=== PATIENT | male | born 1950 | race Caucasian/White ===

== ENCOUNTER → 2024-05-21 07:17 | Outpatient (REF) | payer MEDICARE, SELFPAY | LOC: HWRCS 07:17 | PROVIDERS: ATTENDING PHYSICIAN Internal Medicine Cardiovascular Disease; FAMILY PHYSICIAN Family Medicine | DX: I48.19 Other persistent atrial fibrillation (principal); I10 Essential (primary) hypertension | CPT/HCPCS: 93306 ==

== ENCOUNTER 2024-05-30 08:24 | Day surgery (SDC) | payer MEDICARE, SELFPAY ==
[2024-05-23 10:05] VITALS: BMI 26.4
[2024-05-23 11:05] LABS: % Basophils 0.6 % (0-2); % Immature Granulocytes 0.2 % (0-0.5); % Lymphocytes 23.5 % (20.5-51.1); % Monocytes 15.3 % (1.7-9.3); % Neutrophils 56.4 % (42.2-75.2); Absolute Eosinophils 0.2 10^3/uL (0-0.7); Absolute Lymphocytes 1.1 10^3/uL (1.2-3.4); Absolute Monocytes 0.7 10^3/uL (0.1-0.6); Absolute Neutrophils 2.7 10^3/uL (1.4-6.5); Hematocrit 52.3 % (39.0-52.0); Hemoglobin 18.1 g/dL (13.0-18.0); Mean Corp Hgb Conc. 34.6 g/dL (33.0-37.0); Mean Corpuscular Hgb 30.8 pg (27.0-31.0); Mean Corpuscular Volume 88.9 fL (80.0-94.0); Mean Platelet Volume 10.7 fL (7.4-10.4); Nucleated Red Blood Cells % 0 % (-); Platelet Count 165 10^3/uL (130-400); Red Blood Cell Count 5.88 10^6/uL (4.70-6.10); Red Cell Dist. Width 13.2 % (11.5-14.5); White Blood Cell Count 4.8 10^3/uL (4.8-10.8)
[2024-05-23 11:17] LABS: INR 1.41; PT 17.3 Sec (11.4-14.6)
[2024-05-23 11:35] LABS: ALT (SGPT) 37 U/L (0-50); AST (SGOT) 36 U/L (17-59); Albumin 4.3 g/dl (3.5-5.0); Alkaline Phosphatase 42 U/L (38-126); Blood Urea Nitrogen 18 mg/dl (9-20); Calcium 9.9 mg/dl (8.4-10.2); Carbon Dioxide 34 mmol/L (22-30); Chloride 97 mmol/L (98-107); Estimated Creatinine Clearance 68 ml/min; Glucose 67 mg/dl (70-99); Potassium 3.6 mmol/L (3.5-5.1); Sodium 142 mmol/L (135-145); Total Bilirubin 2.8 mg/dl (0.2-1.3); Total Protein 6.9 g/dl (6.3-8.2); eGFR > 60.00
[2024-05-30] VITALS (7 sets, daily range): BP systolic 129–172; BP diastolic 76–121; BMI 25.7
[2024-05-30 11:33] LABS: ACT-LR - POC 342 Seconds (116-155)
[2024-05-30 11:52] LABS: ACT-LR - POC 329 Seconds (116-155)
[2024-05-30 12:11] LABS: ACT-LR - POC 358 Seconds (116-155)
--- NOTE | 2024-05-30 13:52 | ITS.CL.ABL ---
[facility] Department Supervisor - Ablation
Ablation
Procedure Report:
ELECTROPHYSIOLOGIC STUDY AND POSSIBLE ABLATION
DATE: 05/30/24
Primary Care Provider: Dr Roman Her
Primary Social Director: Dr Lavelle Camarena
INDICATION:
Symptomatic Atrial Fibrillation.
Persistent
HISTORY: See H and P.
Symptomatic AF, poorly controlled with attempted medical therapy
HAS-BLED: 2
Age
CHADSVASc: 3
HTN
Age
PRESENTING RHYTHM: AF
HISTORY: See H and P.
Symptomatic AF, poorly controlled with attempted medical therapy.
ANTICOAGULATION: Rivaroxaban
'TIME-OUT': called and confirmed.
SEDATION/ANESTHESIA: provided via the anesthesia department using general anesthesia.
PROCEDURE:
Ultrasound Guidance performed by sc was utilized for femoral venous Vascular Access b/l.
A decapolar CS catheter was placed within the CS for mapping and pacing.
The intracardiac ultrasound catheter was positioned in the RA for continuous intracardiac ultrasound imaging.
Heparin bolus and infusion to target ACT at 300 -350 seconds was administered. Transseptal puncture was performed. This entailed advancing a sheath with dilator into the superior vena cava and withdrawing both (monitoring intracardiac ultrasound,
fluoroscopy and tip pressure) with the tip oriented toward the atrial septum. The fossa ovalis was engaged (indicated by sudden displacement of the sheath tip as well as tenting of the fossa seen on intracardiac ultrasound).
The FarapDomee transseptal system was used. Left atrial catheter position was confirmed by echocardiographic imaging and fluoroscopy followed by RF delivery using the Hitpost system resulting in successful LA access with pressure monitoring
demonstrating LA pressure waveforms (LA mean pressure 14 mm Hg). The sheath was advanced over the dilator and positioned in the left atrium.
The [employer] multipolar mapping catheter was initially positioned through the transseptal sheath for high density mapping.
Geometry and voltage mapping was performed using the Hannah multipolar grid catheter. Navex was utilized for three-dimensional electroanatomical mapping.
A 3-D map was created using Navex. A 3-D reconstructed CT image was compared to the 3-D Navex map to assist in anatomic evaluation, mapping and ablation.
The [employer] catheter and system was used for cardiac ablation. Catheter positioning was guided and confirmed using both I.C.E. and fluoroscopy.
PV isolation approach was used to electrically isolate each PV ostia (LSPV, LIPV, RSPV, RIPV).
Additional energy applications/additional ablation set was required to accomplish wide area circumferential ablation around each of the pulmonary vein sets and additionally ablation to accomplish LA posterior wall ablation.
Remapping with the [employer] multipolar grid catheter found that all PVPs were eliminated at each vein demonstrating entrance block. Also pacing from the multipolar mapping catheter around the the circumference of the ostia was performed at 10 ma and
2.0 msec output to assess for exit block. This demonstrated electrical isolation at each of the pulmonary vein ostia (LSPV, LIPV, RSPV, RIPV). There is also entrance and exit block at the LA posterior wall.
Programmed electrostimulation failed to induce any sustained arrhythmias.
I.C.E. :
Pre-Ablation Post-Ablation
LVEF: 55 % 55 %
WMA: none none
Pericardial effusion: none none
COMPLICATIONS:
SUMMARY:
- Mapping and ablation to isolate the PVs
- Additional AF ablation set after PVI.
- 3-D Electroanatomical Mapping
- Intracardiac Ultrasound
Post ablation, I discussed today's findings and results with the patient's , Gianna.
RECOMMENDATIONS:
- Observe in monitored bed.
- Maintain oral anticoagulation.
- Office visit with Fabrice in 3 months.
Copy to:
Dr Roman Her
Dr Lavelle Camarena
[2024-05-30] MEDS: TENORMIN 25 MG PO (14:04)
[2024-05-30] MEDS: ORETIC 12.5 MG PO (14:07)
--- NOTE | 2024-05-30 14:20 | W.PN.UPDATE ---
Update Note
Progress Note Update
Pt seen post PFA. Right groin site without ht/bleeding, non tender. Urinating without difficulty. Post EKG NSR w/1st deg AVB, no acute changes. Pt takes Xarelto in the morning and does not want to change to evening dosing. He will take one dose
tonight at 6pm, 04/30 at noon, 05/01 at 10AM, and Saturday 06/02 at 8AM as per usual. Continue other meds as before. Followup at [facility] with [facility] in 3 months as scheduduled. Home later today if groin site/tele remain stable.
[2024-05-30] MEDS: APRESOLINE 5 MG IV (15:06)
[2024-05-30] MEDS: TYLENOL 650 MG PO (15:47)
== END 2024-05-30 17:33 | disposition home or self-care (01) ==
LOC: CATH 08:24
PROVIDERS: ATTENDING PHYSICIAN Internal Medicine Cardiovascular Disease; FAMILY PHYSICIAN Family Medicine; OTHER PHYSICIAN Internal Medicine Cardiovascular Disease
DX: I48.19 Other persistent atrial fibrillation (principal); I10 Essential (primary) hypertension; Z79.01 Long term (current) use of anticoagulants; Z79.899 Other long term (current) drug therapy
CPT/HCPCS: C1732; C1894; C1730; C1892; 36415; 80053; 83735; 85025; 85347; 85610; 86850; 86900; 86901; 93005; 93656; 93657; C1733; C1766

== ENCOUNTER 2024-06-02 21:32 | Emergency (ER) | payer MEDICARE, SELFPAY ==
[2024-06-02 21:43] VITALS: BP 150/106
[2024-06-02 22:07] VITALS: BMI 27.6
[2024-06-02 22:09] VITALS: BP 168/106
[2024-06-02 23:00] VITALS: BP 166/105
--- NOTE | 2024-06-02 23:00 | ED.GENMED ---
History of Present Illness
<PING Gutierrez - Last Filed: 06/02/24 23:47>
General
Chief Complaint: Blood Pressure Problem
Time Seen by Provider: 06/02/24 22:59
History of Present Illness
History of Present Illness:
Patient is a 74 year old male with a past medical history of a cardiac ablation on 06/02/24 coming to the ED with elevated blood pressure. He states it was elevated this morning and throughout the day so he took HCTZ atenolol and nifedipine around
4pm, and it did not go down. The BP at home had a max of 176/117. His normal levels are around 110-120 systolic while on his medication. He admits to a slight chest tightness that started since the day of his ablation, and claims that he was
expecting this from the ablation and it is not worrying him. He denies any chest pain sob palpitations light headedness swelling headache nausea vomiting.
Patient has a history of HTN and PE which is controlled on medication. He is on HCTZ and atenolol for his HTN which is usually controlled. He was also on nifedipine, but his Doctor told him to stop taking it before his ablation. He admitted to
taking one today in hopes of lowering his blood pressure. Patient had a PE in 2019 which is he on Xarelto for. He is presents here with concern of going on a flight to [place] tomorrow. Patient denies smoking but says he drinks alcohol occasionally.
Past History
<PING Gutierrez - Last Filed: 06/02/24 23:47>
Past History
ED Past Medical History: HTN and Hypercholesterolemia; Negative Asthma or CAD
ED Past Surgical History: Orthopedic (Right Achilles tendon repair) and Other (Hernia repair)
Social History
Tobacco: Non-smoker
Alcohol: Occasional
Personal:
Living: with family
Family History
Family History: Hypertension; Negative CAD
Review of Systems
<PING Gutierrez - Last Filed: 06/02/24 23:47>
Review of Systems
Constitutional: Reports no symptoms
Respiratory: Reports no symptoms
Cardiac: Reports no symptoms
ABD/GI: Reports no symptoms
Neurological: Reports no symptoms
Phy Exam
<PING Gutierrez - Last Filed: 06/02/24 23:47>
General Physical Exam
General Presentation: well appearing
General age: appears stated age
General Habitus: normal
General Mental: alert
General Hydration: appears well hydrated
Cardiovascular Exam
Cardiovascular Exam: regular rate/rhythm, no edema, no gallop, no JVD and no murmur
Pulmonary Exam
Pulmonary Exam: lungs clear, no respiratory distress, no rales, chest non tender, no crackles, no rhonchi, no stridor, no wheezing and no cough
Course
<PING Gutierrez - Last Filed: 06/02/24 23:47>
Orders/Labs/Results
Orders:
Orders
06/02/24 21:45
ECG [Electrocardiogram (*1)] Urgent
Reason for Study: Chest Pain
Other Reason for Exam: HTN
EKG- Treatment ONCE
06/02/24 23:44
Metoprolol [Lopressor] 5 mg IV NOW STA
06/02/24 23:47
Metoprolol [Lopressor] 5 mg .ROUTE .STK-MED ONE
Vital Signs
Initial and Last Documented VS:
Initial Vital Signs
Temp Pulse Resp BP Pulse Ox
97.8 F 70 22 150/106 100
06/02/24 21:43 06/02/24 21:43 06/02/24 21:43 06/02/24 21:43 06/02/24 21:43
Last Documented Vital Signs
Temp Pulse Resp BP Pulse Ox
97.8 F 69 11 150/101 98
06/02/24 21:43 06/03/24 00:20 06/03/24 00:20 06/03/24 00:20 06/03/24 00:20
<Dina Marsh DO - Last Filed: 06/03/24 00:28>
Orders/Labs/Results
Orders:
Orders
06/02/24 21:45
ECG [Electrocardiogram (*1)] Urgent
Reason for Study: Chest Pain
Other Reason for Exam: HTN
EKG- Treatment ONCE
06/02/24 23:44
Metoprolol [Lopressor] 5 mg IV NOW STA
06/02/24 23:47
Metoprolol [Lopressor] 5 mg .ROUTE .STK-MED ONE
Vital Signs
Initial and Last Documented VS:
Initial Vital Signs
Temp Pulse Resp BP Pulse Ox
97.8 F 70 22 150/106 100
06/02/24 21:43 06/02/24 21:43 06/02/24 21:43 06/02/24 21:43 06/02/24 21:43
Last Documented Vital Signs
Temp Pulse Resp BP Pulse Ox
97.8 F 69 11 150/101 98
06/02/24 21:43 06/03/24 00:20 06/03/24 00:20 06/03/24 00:20 06/03/24 00:20
<PING Gutierrez - Last Filed: 06/02/24 23:47>
MDM/Problems Addressed
Differential Diagnosis Includes:
elevated bp due to stopping nifedipine
MDM/Problems Addressed:
ekg normal monitor bp, give a dose of lopressor
<PING Gutierrez - Last Filed: 06/02/24 23:47>
*Critical Care Note
Total Time (30-74mins, 75-104mins- exclusive of procedures): Not Applicable
<Dina Marsh DO - Last Filed: 06/03/24 00:28>
*Pulse Oximetry
Patient hypoxic: no
*EKG
Interpreted by ED Provider?: Yes
Interpretation: normal
Comparison EKG: no changes (Unchanged from previous May 30, 2024 save for QT has shortened a bit)
Rate: normal
Rhythm: sinus
[place]: normal axis
Interval: normal interval
QRS Pattern: normal QRS
Ischemia: no ischemia
*[employer] Interpretation
Rate: normal
Interpretation: normal
Rhythm: sinus
ED Attending Note
<PING Gutierrez - Last Filed: 06/02/24 23:47>
-
Portions of this chart may have been created with voice recognition software.� Occasional wrong word or��sound alike� substitutions may have occurred due to the inherent limitations of voice recognition software.
<Dina Marsh DO - Last Filed: 06/03/24 00:28>
ED Attending Note
Patient seen and examined by attending physician: Yes
I performed the substantive portion of visit, reviewed & personally made and approve the management plan that is documented in note by myself or JONATHAN.: Yes
ED Attending Note:
This is a 74-year-old gentleman with history of hypertension as well as persistent A-fib for which he underwent A-fib ablation 3 days ago, May 30.
He is chronically maintained on atenolol 25 mg, hydrochlorothiazide, nifedipine XL 30 mg, Xarelto 20 mg. He was instructed by cardiology to stop his nifedipine several days prior to ablation. He has continued all other medications.
He presents tonight with concern for elevated blood pressure which she noted this morning and has been monitoring his blood pressure multiple times throughout the day today with highest reading this afternoon of 175/117. He took his usual dose of
atenolol, hydrochlorothiazide this morning and resumed nifedipine this evening around 4 PM. Despite doing so he is concerned with persistently elevated blood pressure.
He remains asymptomatic, no headache, no chest pain, no dizziness nor lightheadedness, no shortness of breath, no palpitations, no leg pain or swelling. No GI symptoms.
He states his blood pressure is generally well-controlled with systolic 110-120.
GENERAL: 74-year-old gentleman appears his stated age, awake and alert, pleasant, appears in no acute distress. is accompanying.
EYE: anicteric
NECK: Supple, nontender, no meningismus, no significant adenopathy.
ENT: oral mucosa is moist. No rhinorrhea.
CARDIAC: Regular rate and rhythm. no murmur.
LUNGS: Clear breath sounds bilaterally, no acute respiratory distress, no wheezes/rales/rhonchi
ABDOMEN: Soft, nondistended, without focal tenderness. Right groin without tenderness nor palpable mass.
NEUROLOGICAL: Alert and oriented x3, no focal neuro deficits. Gait is steady.
SKIN: Warm and dry, normal color, skin intact. No rash.
MUSCULOSKELETAL: No C/C/E. peripheral pulses are full and equal b/l. No palpable tenderness.
PSYCH: Normal and appropriate interaction.
Patient presents with accelerated hypertension.
BP improving but remains moderately elevated.
EKG shows normal sinus rhythm, no acute ST-T wave abnormalities.
Clinically well in appearance, nothing in history nor physical exam to suggest acute end organ damage.
Will give an IV dose of Lopressor for improved BP control but at this point no indication for laboratory studies nor imaging.
Would recommend continuing current BP medicines including resumption of nifedipine.
06/03/2024 0027 AM
After 1 IV dose of Lopressor, blood pressure improving to 150/100
Patient remains asymptomatic and is eager to be discharged to home.
Plan as above with recommendations for prompt follow-up with PCP versus orientor for BP recheck.
Return precautions discussed.
Discharge Plan
Departure
Patient Disposition: Home (Routine Discharge)
Date of Disposition: 06/03/24
Time of Disposition: 00:25
Patient with high blood pressure during this ER visit?: No
Condition: Good
Discharge Problem:
Accelerated essential hypertension
Instructions: High Blood Pressure (DC)
Prescriptions:
No Action
hydrochlorothiazide 12.5 MG capsule
12.5 mg PO DAILY
atenolol 50 MG tablet
25 mg DAILY
atorvastatin [Lipitor] 10 MG tablet
10 mg PO DAILY
Xarelto 20 mg Tablet
20 mg PO DAILY
cholecalciferol (vitamin D3) [Vitamin D3] 25 mcg (1,000 unit) Tablet
25 mcg PO DAILY
sildenafil 100 mg Tablet
100 mg PO DAILY PRN (Reason: intercourse )
testosterone 30 mg/actuation (1.5 mL) Solution In Metered Pump W/Jonathan
2 pump TOPICAL DAILY
Ozempic 0.25 mg or 0.5 mg (2 mg/3 mL) Pen Injector
0.5 mg SC QWEEK
Referrals:
Roman Her DO [Family Provider] - Call in 1-3 days for appt
Interventions
Interventions:
*Risk Screen - Suicide Last Done: 06/02/24 21:43
*General Assessment Last Done: 06/02/24 22:07
*Neglect/Abuse Screening Last Done: 06/02/24 21:43
ED- Fall Risk Assessment Last Done: 06/02/24 22:07
*ED COVID-19 Vaccine History Last Done: 06/02/24 22:07
ED- Cardiac Assessment Last Done: 06/02/24 22:07
ED- Neurological Assessment Last Done: 06/02/24 22:07
ED- Pulmonary Assessment Last Done: 06/02/24 22:07
Discharge Date and Time
Print Language: [place]
[2024-06-02 23:41] VITALS: BP 172/114
[2024-06-02] MEDS: LOPRESSOR 5 MG IV (23:51)
[2024-06-02 23:54] VITALS: BP 160/103
[2024-06-03] VITALS: BP 158/99
[2024-06-03 00:20] VITALS: BP 150/101
== END 2024-06-03 00:33 | disposition home or self-care (01) ==
LOC: EMR 21:32
PROVIDERS: EMERGENCY PHYSICIAN Emergency Medicine; FAMILY PHYSICIAN Family Medicine; REFERRING PHYSICIAN Internal Medicine Cardiovascular Disease
DX: I10 Essential (primary) hypertension (principal); E78.00 Pure hypercholesterolemia, unspecified; I48.91 Unspecified atrial fibrillation; Z79.01 Long term (current) use of anticoagulants; Z82.49 Family history of ischemic heart disease and other diseases of the circulatory system; Z86.711 Personal history of pulmonary embolism
CPT/HCPCS: 99283; 96374; 93005

== ENCOUNTER → 2025-04-26 13:04 | Outpatient (REF) | payer MEDICARE, SELFPAY | LOC: RAD 13:04 | PROVIDERS: ATTENDING PHYSICIAN Family Medicine | DX: M79.644 Pain in right finger(s) (principal) | CPT/HCPCS: 73140 ==